=== PATIENT | female | born 1970 | race Caucasian/White ===

== ENCOUNTER → 2016-09-29 | Outpatient (CLI) | payer BC ==
[~2016-09-29] MED LIST: FLUC200T4 PO; NYSTCRE32 TOP; PHEN-775 PO
== END | disposition home or self-care (01) ==
LOC: C.PAPS 09:35
PROVIDERS: ATTEND Obstetrics & Gynecology
DX: Z01.419 Encounter for gynecological examination (general) (routine) without abnormal findings (principal)

== ENCOUNTER → 2016-12-22 | Outpatient (CLI) | payer BC ==
--- NOTE | 2016-12-22 13:14 | MAMMOGRAPHY REPORT ---
BILATERAL DIGITAL DIAGNOSTIC MAMMOGRAM TOMOSYNTHESIS WITH CAD AND TARGETED RIGHT ULTRASOUND: 12/22/2016 CLINICAL HISTORY: The patient reports a palpable right breast lump for approximately one month. TECHNIQUE: Breast tomosynthesis in addition to standard 2D mammography was performed. Current study was also evaluated with a Computer Aided Detection (CAD) system. Bilateral CC and MLO 2-D and tomosy nthesis images were obtained. COMPARISON: Comparison is made to exam dated: 09/23/2015 mammogram - [facility]. BREAST COMPOSITION: The tissue of both breasts is extremely dense, which lowers the sensitivity of m ammography. FINDINGS: A triangle marker crystal the site of the palpable lump in the right upper outer quadrant. There are no suspicious masses, calcifications, or areas of architectural distortion noted mammograph ically. There has been no significant interval change compared to prior exams. Scattered bilateral benign appearing calcifications are not significantly changed. Targeted ultrasound was performed of the area of the palpable lump pointed out by the patient, in the right breast at approximately 11:00, 6 cm from the nipple. At the site of the palpable lump there i s a round circumscribed hypoechoic solid mass which measures 7 x 8 x 8 mm. This is indeterminate and ultrasound-guided core needle biopsy is recommended for further evaluation. IMPRESSION: ACR BI-RADS CATEGORY 4: SUSPICIOUS, TARGETED ULTRASOUND ACR BI-RADS CATEGORY 4: SUSPICIO US Circumscribed solid 8 mm mass at the site of the palpable lump in the right breast at 11:00. The mas s is indeterminate and ultrasound guided core needle biopsy is recommended for further evaluation. T his may represent a fibroadenoma. A phone call was made to the physician's office to confirm faxed results were received. The patient has been verbally notified of the results. She tentatively scheduled the biopsy before [facility]. Approximately 10% of breast cancers are not detected with mammography. A negative mammographic report should not delay biopsy if a clinically suggestive mass is present. Pearl Magallon M.D. /:12/22/2016 09:54:49 Ratoprinter: Renay ARIAS(Juani)(Sky), [facility] letter sent: Abnormal 4/5 BI-RADS Code: ACR BI-RADS Category 4: Suspicious Ultrasound BI-RADS: ACR BI-RADS Category 4: Suspici ous
== END | disposition home or self-care (01) ==
LOC: C.MAMM 09:21
PROVIDERS: ATTEND Obstetrics & Gynecology
DX: N63 Unspecified lump in breast (principal)

== ENCOUNTER → 2016-12-24 | Outpatient (CLI) | payer BC ==
--- NOTE | 2016-12-24 13:30 | Discharge Instructions ---
Discharge Instructions Procedure Procedure Date: Dec 24, 2016. Reason for visit: Right Mass. Discharge Discharge Date: Dec 24, 2016. Discharge Diagnosis: status post breast biopsy Instructions Activity Recommendations: Additional Limitations (see below) Return to School/Work: no limitations Recommended Home Diet: No Limitations Provider Instructions: ACTIVITY RECOMMENDATIONS: * No lifting, pushing, pulling or exercising the affected side for three days. RETURN TO SCHOOL/WORK: * You may return to work/school after the procedure, but do not perform any strenuous activities for 24 to 48 hours. MEDICATIONS: * Tylenol (two 325 mg) every four to six hours if needed for mild pain (if not allergic to Tylenol). DIET: * Resume previous diet. SPECIAL CARE INSTRUCTIONS: * Keep biopsy site dry for 24 hours. May shower after 24 hours, but do not soak (bathe) incision. * May remove Tegaderm (plastic patch) tomorrow AFTER showering. * Leave the steri-strips on for one week. Allow the steri-strips to fall off by themselves. If not off after one week, you may remove them. You may place a Bandaid crosswise over the strips, if desired. * Apply ice 10 minutes on and 10 minutes off as needed. * Wear a bra at bedtime to sleep more comfortably for 2-3 days. * Your referring physician should have the results after approximately 5 to 7 business days. * Call for unusual bleeding, fever, drainage, etc or if you have any questions call during normal business hours or after hours call Dr Magallon, . FOLLOW UP VISIT: Follow-up with Referring Physician as scheduled. Allergies Coded Allergies: Fluconazole (Verified Allergy, Unknown, mouth ulcers,lip swelling, 03/22/15) Valerie Metz Recommendations: Call your doctor if: * Temperature above 101 degrees * Pain not relieved by pain medicine ordered * There is increased drainage or redness from any incision * You have any unanswered questions or concerns. Your Doctors Instructions noted above were prepared by provider Pearl Magallon. Patient Signature Section: Patient Instructions Signature Page Lana Cordova Patient (or Guardian) Signature/Date: I have read and understand the instructions given to me by my caregivers. Caregiver/RN/Doctor Signature/Date: The above-named patient and/or guardian has received patient instructions on this date. + Original Patient Signature Page (only) stays with chart. Please make copy for patient.
--- NOTE | 2016-12-24 13:55 | MAMMOGRAPHY REPORT ---
THIS REPORT HAS BEEN AMENDED. ULTRASOUND GUIDED BIOPSY RIGHT BREAST: 12/24/2016 CLINICAL HISTORY: Right 11:00 breast mass. PATIENT CONSENT: The procedure, risks and benefits were discussed with the patient and informed writt en consent was obtained. A timeout was performed immediately prior to the procedure. PROCEDURE DESCRIPTION: With ultrasound guidance, aseptic technique, and lidocaine as the local anesth etic (1% lidocaine to anesthetize the skin and 1% lidocaine with epinephrine to anesthetize the deepe r tissues), the mass of concern in the right 11:00 breast was sampled 3 times with a 14-gauge achieve biopsy needle. Immediately thereafter, with ultrasound guidance, aseptic technique, and lidocaine a s the local anesthetic, a metallic localizer clip was placed centrally in the mass. Direct pressure was applied to the site immediately post procedure and hemostasis was achieved. Postprocedure unilat eral mammograms were performed to confirm placement of the clip in the expected location of the breas t mass. The patient tolerated the procedure without complication. She was given wound care instruc tions. The specimens were sent to pathology for analysis. COMPARISON: Comparison is made to exams dated: 12/22/2016 ultrasound, 12/22/2016 mammogram, and 09/23/2015 mammogram - [facility]. IMPRESSION: ULTRASOUND GUIDED BIOPSY Ultrasound guided core needle biopsy of the right 11:00 breast mass, with clip placement. The patien priya will receive pathology results from her referring provider. Pearl Magallon M.D. ah/:12/24/2016 13:31:29 Service Dispatcher: Renee ARIAS(Juani)(Sky), [facility] AMENDMENT: 12/29/2016 Pearl Magallon M.D. The pathology of right breast ultrasound guided biopsy was reviewed on 12/29/2016. The pathology show s a fibroepithelial lesion with increased stromal cellularity, with differential including a cellular fibroadenoma versus phyllodes tumor. Excision was recommended by the pathologist. Therefore, recom mend surgical consultation and surgical excision.
--- NOTE | 2016-12-24 16:02 | MAMMOGRAPHY REPORT ---
UNILATERAL RIGHT DIGITAL DIAGNOSTIC MAMMOGRAM: 12/24/2016 CLINICAL HISTORY: Status post ultrasound-guided biopsy of the right breast. TECHNIQUE: Postprocedural right CC, XCCL, and ML views were obtained. COMPARISON: Comparison is made to exams dated: 12/22/2016 mammogram, 09/23/2015 mammogram, and 12/22/2016 ultrasound - [facility]. BREAST COMPOSITION: The tissue of the right breast is extremely dense, which lowers the sensitivity of mammography. FINDINGS: A new biopsy marker clip is seen in the right breast status post ultrasound guided biopsy of the right 11:00 breast mass. No significant postbiopsy hematoma is seen. IMPRESSION: POST PROCEDURE IMAGING FOR MARKER PLACEMENT New biopsy marker clip status post right breast biopsy. Pathology results are pending. Approximately 10% of breast cancers are not detected with mammography. A negative mammographic report should not delay biopsy if a clinically suggestive mass is present. Pearl Magallon M.D. ah/:12/24/2016 13:42:19 Music Sound Light Technician: Renee ARIAS(R)(M), [facility] BI-RADS Code: Post Procedure Imaging For Marker Placement
== END | disposition home or self-care (01) ==
LOC: C.MAMM 12:50
PROVIDERS: ATTEND Obstetrics & Gynecology
DX: N63 Unspecified lump in breast (principal); D48.61 Neoplasm of uncertain behavior of right breast

== ENCOUNTER → 2017-02-08 | Outpatient (CLI) | payer BC | END | disposition home or self-care (01) | LOC: C.LABPVFM 05:51 | PROVIDERS: ATTEND Family Medicine | DX: J02.9 Acute pharyngitis, unspecified (principal) ==

== ENCOUNTER 2019-12-17 11:11 | Observation (INO) ==
[2019-12-17 11:58] LABS: Basophils # (auto) 0.01 K/uL (0-0.2); Basophils % (auto) 0.1 %; Eosinophils # (auto) 0.01 K/uL (0-0.5); Eosinophils % (auto) 0.1 %; Hemoglobin 9.5 g/dL (12.0-16.0); Immature Granulocytes # (auto) 0.01 K/uL (0.00-0.02); Immature Granulocytes % (auto) 0.1 %; Lymphocytes # (auto) 1.03 K/uL (1.2-3.4); Lymphocytes % (auto) 13.7 %; Mean Corpuscular Hemoglobin 25.1 pg (25-34); Mean Corpuscular Hgb Conc 31.7 g/dL (32-36); Mean Corpuscular Volume 79.2 fL (80-100); Mean Platelet Volume 9.8 fL (7.4-10.4); Monocytes # (auto) 0.49 K/uL (0.11-0.59); Monocytes % (auto) 6.5 %; Neutrophils # (auto) 5.95 K/uL (1.4-6.5); Neutrophils % (auto) 79.5 %; Platelet Count 252 K/uL (130-400); RDW Coefficient of Variation 15.7 % (11.5-14.5); RDW Standard Deviation 45.5 fL (36.4-46.3); Red Blood Count 3.79 M/uL (4.2-5.4)
[2019-12-17] MEDS ORDERED: SODIUM CHLORIDE 0.9% 1000ML 1,000 ML IV ONE ×2 (12:07→14:35)
[2019-12-17 12:14] LABS: Albumin Level 3.7 gm/dl (3.4-5.0); BUN Creatinine Ratio 12.6 (10-20); Calcium 8.7 mg/dl (8.5-10.1); Creatinine Clr Calc Pharmacy 98.8 ml/min; Est GFR (African American) 117.6; Est GFR (Non-African American) 101.4; Potassium 3.4 mmol/L (3.5-5.1)
[2019-12-17 12:17] LABS: Albumin Globulin Ratio 0.9 (0.9-2); Bilirubin,Total 0.4 mg/dl (0.2-1); Globulin 4.1 gm/dl (2.5-4.0); Total Protein 7.8 gm/dl (6.4-8.2)
--- NOTE | 2019-12-17 12:20 | Emergency Department Note ---
Impression & Plan Hemoperitoneum, Abdominal pain, Anemia ED Provider Note NAME: LIS PEÑA AGE: 49 SEX: F : 1970 ARRIVES VIA: Walk-In INFORMANT: Patient ED PROVIDER(S): Patrick Abarca DO CHIEF COMPLAINT: Lower abdominal pain HPI: Patient is a 49-year-old female who presents the ER for pain in the lower belly. She describes as a crampy pain but unremitting. It is worse after eating and drinking. Started yesterday midday and progressively worsened. She admits to nausea. Last menstrual period started yesterday. Last bowel movement was yesterday. She notes that when she woke up this morning her belly was sore and she had some soreness in the right lower chest. She notes that change sides and then resolved. It was at 6 AM when this occurred. She notes the pain has improved significantly. She did try some ibuprofen yesterday. She still has the crampy persistent pain in her lower belly worse on the right without any other radiation. ROS: See above HPI for pertinent positives & negatives. A total of 10 systems reviewed and were otherwise negative. PAST MEDICAL HISTORY:See Below PAST SURGICAL HISTORY:See Below FAMILY HISTORY:See Below SOCIAL HISTORY:See Below HOME MEDICATIONS:See Below ALLERGIES:See Below VITALS:See Below PHYSICAL EXAMINATION: GENERAL: Sitting up in bed, alert, well appearing, well nourished, no distress, non-toxic EYE EXAM: normal conjunctiva. OROPHARYNX: no exudate, no erythema, lips, buccal mucosa, and tongue normal and mucous membranes are moist NECK: supple, no nuchal rigidity, no adenopathy, non-tender LUNGS: Clear to auscultation. Normal chest wall mechanics HEART: no murmurs, S1 normal and S2 normal ABDOMEN: abdomen soft, faint tenderness in the right lower quadrant, normo- active bowel sounds, no masses, no rebound or guarding. BACK: Back is symmetrical on inspection and there is no deformity, no midline tenderness, no CVA tenderness. SKIN: no rashes and no bruising UPPER EXTREMITIES: upper extremities are grossly normal. LOWER EXTREMITIES: No pitting edema. NEURO EXAM: Normal sensorium, cranial nerves II-XII grossly intact, normal speech, no gross weakness of arms, no gross weakness of legs. MEDICAL DECISION MAKING: Patient is a 49-year-old female that presents the ER for lower abdominal pain which started yesterday associated with vaginal bleeding. IV was established blood work was obtained. Labs show no significant leukocytosis but anemia at 9.5. BMP with a mild hyponatremia and hypokalemia. LFTs bilirubin and troponin was negative. Lipase was normal. UA was contaminated with multiple epithelial cells. was negative. CT abdomen pelvis shows large abdominal hematoma along with hemoperitoneum. Patient was given IV fluids. She was given IV Toradol prior to the result of the CT. Discussed with gynecology who evaluated the patient at bedside. They elected to admit her to trend out hemoglobins. She may be discharged later today if the hemoglobin vince stable. Patient was updated bedside and agreeable with the plan. Triage Nursing notes reviewed. Prior medical records reviewed Vital Signs: reviewed and remarkable for tachycardic Differential diagnosis: Differential diagnoses includes but is not limited to gastritis, peptic ulcer disease, GERD, gallbladder disease, pancreatitis, small bowel obstruction, acute coronary syndrome, pericarditis, ischemic bowel, irritable bowel disease, irritable bowel syndrome, appendicitis, diverticulitis, malignancy, hernia, urinary tract infection, torsion, /ectopic (if female), perforation, trauma, infectious. ER treatment provided: See below Diagnostics interpreted by me: ECG: Sinus rhythm rate 86 Normal axis No PVCs Normal QTC Cardiac Monitoring: An order was placed for continuous cardiac monitoring. The monitor shows a rate of 98 with sinus rhythm. Laboratory studies: As stated above and show below. Imaging studies: CT abdomen pelvis shows a large hemoperitoneum. Consultation(s): Dr. Glen Guajardo ED COURSE: Procedures: none Critical Care: None Past Med/Surg History Medical History Migraine Surgical History History of biopsy 04/08/16 - endometrial biopsy. Benign. History of lumpectomy of right breast 01/13/17 - local anesthesia. Benign - consistent with fibroadenoma History of right breast biopsy 12/24/16 - local anesthesia--inconclusive; 02/14/04 - Benign, consistent with fibroadenoma. 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 Beliefs That Will Affect Care: None marital status: Current Living Situation: Spouse and Family Current Living Situation Comment: Lives with and 1 teenage daughter current occupational status: employed Feels Safe at Home: Yes Smoking Status: Never smoker Second Hand Exposure: Yes (parents smoked when pt was really young) ; Hx Alcohol Use: Yes Alcohol type: beer Hx Substance Use: No Dental Care, Regularly: Yes Seatbelt Use: always Sunscreen Use: Yes Allergies Allergies Allergy/AdvReac Type Severity Reaction Status Date / Time fluconazole Allergy Intermediate mouth Verified 12/17/19 12:36 ulcers,lip swelling Home Meds Home Medications Medication Instructions Recorded Confirmed multivitamin 1 tab PO QAM 09/23/19 12/17/19 ibuprofen 400 - 600 mg PO Q6H PRN 12/17/19 12/17/19 naproxen sodium [Aleve] 440 mg PO Q8H PRN 12/17/19 12/17/19 Results & Data (ED) Vital Signs Vital Signs - 24 hr 12/17/19 11:23 12/17/19 11:40 12/17/19 12:16 Temperature 36.9 C Temperature Source Oral Pulse Rate 100 H 78 Pulse Rate [Right Finger] Respiratory Rate 16 19 Respiratory Depth Normal Blood Pressure 110/73 Blood Pressure [Right Arm] Blood Pressure Mean 85 Blood Pressure Mean [Right Arm] Pulse Oximetry 100 100 Oxygen Delivery Method Room Air Room Air Sepsis Recent Fever Within 48 Hours No Sepsis New/Unexplained Change in Mental Status No Sepsis Action Taken by Nursing No Action Required 12/17/19 12:20 12/17/19 12:30 12/17/19 12:40 Temperature Temperature Source Pulse Rate 74 77 74 Pulse Rate [Right Finger] Respiratory Rate 18 22 21 Respiratory Depth Blood Pressure Blood Pressure [Right Arm] Blood Pressure Mean Blood Pressure Mean [Right Arm] Pulse Oximetry Oxygen Delivery Method Sepsis Recent Fever Within 48 Hours Sepsis New/Unexplained Change in Mental Status Sepsis Action Taken by Nursing 12/17/19 12:50 12/17/19 13:04 12/17/19 13:10 Temperature Temperature Source Pulse Rate 71 79 75 Pulse Rate [Right Finger] Respiratory Rate 20 19 Respiratory Depth Blood Pressure Blood Pressure [Right Arm] Blood Pressure Mean Blood Pressure Mean [Right Arm] Pulse Oximetry Oxygen Delivery Method Sepsis Recent Fever Within 48 Hours Sepsis New/Unexplained Change in Mental Status Sepsis Action Taken by Nursing 12/17/19 13:13 12/17/19 15:15 Temperature Temperature Source Pulse Rate 74 Pulse Rate [Right Finger] 74 Respiratory Rate 14 20 Respiratory Depth Blood Pressure 113/64 Blood Pressure [Right Arm] 115/70 Blood Pressure Mean 71 Blood Pressure Mean [Right Arm] 85 Pulse Oximetry 100 Oxygen Delivery Method Room Air Sepsis Recent Fever Within 48 Hours Sepsis New/Unexplained Change in Mental Status Sepsis Action Taken by Nursing Laboratory Data Result diagrams: 12/17/19 11:40 12/17/19 11:40 Lab Results 12/17/19 12/17/19 12/17/19 Range/Units 11:40 11:40 11:40 WBC 7.50 (4.8-10.8) K/uL RBC 3.79 L (4.2-5.4) M/uL Hgb 9.5 L (12.0-16.0) g/dL Hct 30.0 L (37-47) % MCV 79.2 L (80-100) fL MCH 25.1 (25-34) pg MCHC 31.7 L (32-36) g/dL RDW Std Deviation 45.5 (36.4-46.3) fL RDW Coeff of Jermaine 15.7 H (11.5-14.5) % Plt Count 252 (130-400) K/uL MPV 9.8 (7.4-10.4) fL Immature Gran % (Auto) 0.1 % Neut % (Auto) 79.5 % Lymph % (Auto) 13.7 % [place] % (Auto) 6.5 % Eos % (Auto) 0.1 % Baso % (Auto) 0.1 % Immature Gran # (Auto) 0.01 (0.00-0.02) K/uL Neut # (Auto) 5.95 (1.4-6.5) K/uL Lymph # (Auto) 1.03 L (1.2-3.4) K/uL [place] # (Auto) 0.49 (0.11-0.59) K/uL Eos # (Auto) 0.01 (0-0.5) K/uL Baso # (Auto) 0.01 (0-0.2) K/uL Sodium 135 L (136-145) mmol/L Potassium 3.4 L (3.5-5.1) mmol/L Chloride 104 (98-107) mmol/L Carbon Dioxide 25 (21-32) mmol/L Anion Gap 6.0 (3-11) BUN 9 (7-18) mg/dl Creatinine 0.71 (0.6-1.2) mg/dl Est Cr Clr Drug Dosing 98.8 ml/min Est GFR ( Amer) 117.6 Est GFR (Non-Af Amer) 101.4 BUN/Creatinine Ratio 12.6 (10-20) Glucose 118 H (70-99) mg/dl Calcium 8.7 (8.5-10.1) mg/dl Total Bilirubin 0.4 (0.2-1) mg/dl AST 13 L (15-37) U/L ALT 17 (12-78) U/L Alkaline Phosphatase 65 (45-117) U/L Troponin I < 0.015 (0-0.045) ng/ml Total Protein 7.8 (6.4-8.2) gm/dl Albumin 3.7 (3.4-5.0) gm/dl Globulin 4.1 H (2.5-4.0) gm/dl Albumin/Globulin Ratio 0.9 (0.9-2) Lipase 121 (73-393) U/L Urine Color Urine Appearance (Clear) Urine pH (4.5-7.5) Ur Specific [place] (1.000-1.030) Urine Protein (Negative) Urine Glucose (UA) (Negative) Urine Ketones (Negative) Urine Blood (Negative) Urine Nitrite (Negative) Urine Bilirubin (Negative) Urine Urobilinogen (Negative) Ur Leukocyte Esterase (Negative) Urine WBC (Auto) (0-5) /hpf Urine RBC (Auto) (0-4) /hpf U Hyaline Cast (Auto) (0-5) /lpf U Epithel Cells (Auto) (0-5) /lpf Urine Bacteria (Auto) (Negative) POC Ur Test (NEG) 12/17/19 12/17/19 Range/Units 12:15 12:15 WBC (4.8-10.8) K/uL RBC (4.2-5.4) M/uL Hgb (12.0-16.0) g/dL Hct (37-47) % MCV (80-100) fL MCH (25-34) pg MCHC (32-36) g/dL RDW Std Deviation (36.4-46.3) fL RDW Coeff of Jermaine (11.5-14.5) % Plt Count (130-400) K/uL MPV (7.4-10.4) fL Immature Gran % (Auto) % Neut % (Auto) % Lymph % (Auto) % [place] % (Auto) % Eos % (Auto) % Baso % (Auto) % Immature Gran # (Auto) (0.00-0.02) K/uL Neut # (Auto) (1.4-6.5) K/uL Lymph # (Auto) (1.2-3.4) K/uL [place] # (Auto) (0.11-0.59) K/uL Eos # (Auto) (0-0.5) K/uL Baso # (Auto) (0-0.2) K/uL Sodium (136-145) mmol/L Potassium (3.5-5.1) mmol/L Chloride (98-107) mmol/L Carbon Dioxide (21-32) mmol/L Anion Gap (3-11) BUN (7-18) mg/dl Creatinine (0.6-1.2) mg/dl Est Cr Clr Drug Dosing ml/min Est GFR ( Amer) Est GFR (Non-Af Amer) BUN/Creatinine Ratio (10-20) Glucose (70-99) mg/dl Calcium (8.5-10.1) mg/dl Total Bilirubin (0.2-1) mg/dl AST (15-37) U/L ALT (12-78) U/L Alkaline Phosphatase (45-117) U/L Troponin I (0-0.045) ng/ml Total Protein (6.4-8.2) gm/dl Albumin (3.4-5.0) gm/dl Globulin (2.5-4.0) gm/dl Albumin/Globulin Ratio (0.9-2) Lipase (73-393) U/L Urine Color Yellow Urine Appearance Clear (Clear) Urine pH 6.5 (4.5-7.5) Ur Specific [place] 1.021 (1.000-1.030) Urine Protein Negative (Negative) Urine Glucose (UA) Negative (Negative) Urine Ketones Negative (Negative) Urine Blood 3+ H (Negative) Urine Nitrite Negative (Negative) Urine Bilirubin Negative (Negative) Urine Urobilinogen Negative (Negative) Ur Leukocyte Esterase Negative (Negative) Urine WBC (Auto) 1-5 (0-5) /hpf Urine RBC (Auto) >30 H (0-4) /hpf U Hyaline Cast (Auto) 5-10 H (0-5) /lpf U Epithel Cells (Auto) >30 H (0-5) /lpf Urine Bacteria (Auto) Negative (Negative) POC Ur Test NEG (NEG) Administered Medications Ioversol (Optiray 320 100ml) 93 ml IV ONCE PRN PRN Reason: Interaction Checking Stop: 12/21/19 12:55 Last Admin: 12/17/19 12:56 Dose: 93 ml Documented by: [id number] Discontinued Medications Sodium Chloride (Nss 1000ml) 1,000 mls @ 999 mls/hr IV .Q1H1M ONE Stop: 12/17/19 13:07 Last Infusion: 12/17/19 13:26 Dose: 0 mls/hr Documented by: [id number] Admin: 12/17/19 12:11 Dose: 999 mls/hr Documented by: [id number] Sodium Chloride (Nss 1000ml) 1,000 mls @ 999 mls/hr IV .Q1H1M ONE Stop: 12/17/19 15:35 Last Admin: 12/17/19 15:13 Dose: 999 mls/hr Documented by: [id number] Ketorolac Tromethamine (Toradol) 15 mg IV NOW ONE Stop: 12/17/19 13:08 Last Admin: 12/17/19 13:13 Dose: 15 mg Documented by: [id number] Discharge Plan Visit Data Chief Complaint: Abdominal Pain Stated Complaint: ABDOMINAL PAIN,NAUSEA ED Provider: Patrick Abarca Discharge Problem: Hemoperitoneum, Abdominal pain, Anemia Forms Stand Alone Forms: My [facility] [employer] Prescriptions Prescriptions: No Action multivitamin [Multiple Vitamins] Tablet 1 tab PO QAM RF: 0 ibuprofen 200 mg Tablet 400 - 600 mg PO Q6H PRN (Reason: Pain) RF: 0 naproxen sodium [Aleve] 220 mg Capsule 440 mg PO Q8H PRN (Reason: Pain) RF: 0 Discharge Problem: Abdominal pain Qualifiers: Abdominal location: unspecified location Qualified Code(s): R10.9 - Unspecified abdominal pain Anemia Qualifiers: Anemia type: unspecified type Qualified Code(s): D64.9 - Anemia, unspecified
[2019-12-17 12:26] LABS: Appearance Urine Clear (Clear); Bacteria Urine Automated Negative (Negative); Bilirubin Urine Negative (Negative); Blood Urine 3+ (Negative); Color Urine Yellow; Epithelial Cell Urine Auto >30 /lpf (0-5); Glucose Urine UA Negative (Negative); Ketones Urine Negative (Negative); Leukocyte Esterase Urine Negative (Negative); Nitrite Urine Negative (Negative); Protein Urine Negative (Negative); RBC Urine Automated >30 /hpf (0-4); Specific Gravity Urine 1.021 (1.000-1.030); Urobilinogen Urine Negative (Negative); pH Urine 6.5 (4.5-7.5)
[2019-12-17] MEDS ORDERED: IOVERSOL 100ml IV PRN (12:56)
[2019-12-17] MEDS ORDERED: KETOROLAC TROMETHAMINE 15 MG/ML VIAL IV ONE (13:07)
--- NOTE | 2019-12-17 13:16 | CT Scan Report ---
CT SCAN OF THE ABDOMEN AND PELVIS WITH IV CONTRAST CLINICAL HISTORY: Right-sided abdominal pain. COMPARISON STUDY: No priors. TECHNIQUE: Following the IV administration of 93 cc of Optiray 320, CT scan of the abdomen and pelvi s is performed from the lung bases to the proximal femora. Images are reviewed in the axial, sagittal , and coronal planes. IV contrast was administered without complication. A dose lowering technique wa s utilized adhering to the principles of ALARA. CT DOSE: 324.44 mGy.cm FINDINGS: Lung bases: The heart is normal in size and without pericardial effusion. There are trace pleural eff usions with dependent atelectasis. Liver: The contrast-enhanced liver is normal in size, contour, and attenuation. There is no intrahepa tic biliary ductal dilatation. The hepatic veins and portal veins are patent. A 1.6 cm low-attenuatio n lesion in the right lobe on image #51 and 1.7 cm hypodense lesion in the inferior right lobe on christian ge #148 are pathologically indeterminant. Scattered hepatic cysts measure up to 1.6 cm. Additional grullon bcentimeter hepatic hypodensities also likely represent cysts but are too small for definitive charac terization. Gallbladder: Unremarkable. Spleen: Normal in size and attenuation. Pancreas: Unremarkable. Adrenal glands: Unremarkable. Kidneys: The contrast enhanced kidneys are normal in size and without hydronephrosis. The kidneys enh ance symmetrically. Abdominal vasculature: The abdominal aorta is normal in course and caliber. Bowel: No bowel obstruction is identified. There are scattered colonic diverticula without CT evidenc e of acute diverticulitis. The appendix is well-visualized and normal. Peritoneum: There is a small volume of complex free fluid in the abdomen and pelvis. This likely repr esents hemoperitoneum. No intraperitoneal free air is seen. There is a fat-containing umbilical herni a. Lymphadenopathy: None. Pelvic viscera: The bladder is distended but otherwise normal in appearance. Question uterine fibroid s. A tampon is in place. An approximately 8 x 6 cm hematoma is suggested in the right adnexa on image #320. This is not well delineated due to surrounding hemoperitoneum. No active extravasation is iden tified. Follicles are noted in the left ovary. Skeletal structures: No lytic or blastic lesions are seen. IMPRESSION: 1. There is a small volume of complex free fluid in the abdomen and pelvis typical in appearance for hemoperitoneum. 2. An approximately 8 x 6 cm hematoma is suggested in the right adnexa. 3. Although the right ovary is not well evaluated due to surrounding hemoperitoneum, these findings s uggest the sequelae of a ruptured hemorrhagic ovarian cyst. If there is a positive test a r uptured ectopic would be impossible to exclude. Clinical correlation will be essential. Pel jose ultrasound could be considered for further assessment. 4. There are 2 indeterminate low-attenuation liver lesions which measure up to 1.7 cm. These may repr esent hemangiomas but are incompletely assessed. These are of low suspicion of there is no cancer his tory. If definitive assessment is desired a nonemergent liver protocol MRI would be appropriate. ACT 112: Negative or not required by law. Electronically signed by: Vaughn Munguia M.D. 12/17/2019 1:15 PM
[2019-12-17] MEDS ORDERED: LACTATED RINGER'S 1,000 ML IV PRN (13:38)
[2019-12-17] MEDS ORDERED: ONDANSETRON INJ 2 MG/ML 2 ML VIAL IV PRN ×2 (13:38→18:46)
--- NOTE | 2019-12-17 13:47 | History & Physical Report ---
Date of Service December 17, 2019 Assessment & Plan (1) Ovarian cyst: Reviewed the CT scan and it reveals an 8 x 5 cm hemorrhagic right ovarian cyst. Her hemoglobin is 9.5 I do not have a baseline prior to this. There is minimal hemoperitoneum The patient is symptomatically much better. I have deferred pelvic exam at this time as she has had a recent pelvic and I have a CT results. I do not have a baseline hemoglobin prior to this so I will repeat the hemoglobin at 5 PM today if it is dropping significantly we discussed the need for surgery will make the patient n.p.o. as well now we discussed if that hemoglobin was stable and her symptoms were stable this could be managed as an outpatient and trying to avoid surgery however her symptoms worsened or she became unstable hemodynamically or if the hemoglobin drops significantly that we would recommend surgery patient is agreeable to this History of Present Illness Primary Care Provider: Hannah Mcgregor MD 49-year-old woman presents with right lower quadrant pain initially began yesterday a.m. and then worsened today she presented to the ER it did start to spontaneously improve she described to this significant pain in her right lower quadrant associated with nausea and vomiting. Patient is known to our practice has had 2 children with her group she is otherwise healthy Patient has had a CT scan and pelvic exam in the ER Allergies Allergy/AdvReac Type Severity Reaction Status Date / Time fluconazole Allergy Intermediate mouth Verified 12/17/19 12:36 ulcers,lip swelling Home Medications Home Medications Medication Instructions Recorded Confirmed Type multivitamin 1 tab PO QAM 09/23/19 12/17/19 History ibuprofen 400 - 600 mg PO Q6H PRN 12/17/19 12/17/19 History naproxen sodium [Aleve] 440 mg PO Q8H PRN 12/17/19 12/17/19 History Patient History Medical History Migraine Surgical History History of biopsy 04/08/16 - endometrial biopsy. Benign. History of lumpectomy of right breast 01/13/17 - local anesthesia. Benign - consistent with fibroadenoma History of right breast biopsy 12/24/16 - local anesthesia--inconclusive; 02/14/04 - Benign, consistent with fibroadenoma. History of tonsillectomy and adenoidectomy History of wisdom tooth extraction S/P thyroid biopsy Family History Sister Family hx of colon cancer Son Family history of reaction to anesthesia difficulty waking Grandfather (Maternal) Cardiac disorder Grandfather (Paternal) Lung cancer Grandmother (Paternal) Breast cancer Grandmother (Maternal) Malignant neoplasm of kidney Social History Preferred Language: [place] Communication Ability: Effective Vice President Of Compliance Required: No Beliefs That Will Affect Care: None marital status: Current Living Situation: Spouse and Family Current Living Situation Comment: Lives with and 1 teenage daughter current occupational status: employed Feels Safe at Home: Yes Smoking Status: Never smoker Second Hand Exposure: Yes (parents smoked when pt was really young) ; Hx Alcohol Use: Yes Alcohol type: beer Hx Substance Use: No Dental Care, Regularly: Yes Seatbelt Use: always Sunscreen Use: Yes Review of Systems All systems reviewed & are unremarkable except as noted in HPI & below Physical Exam Constitutional: WD/WN, vitals as above Respiratory: normal respiratory effort, lungs clear to auscultation Cardiovascular: RRR, no murmur, no edema Gastrointestinal (Abdomen): normal bowel sounds, soft, nontender, no he patosplenomegaly Results & Data Vital Signs (Past 12 Hours) Vital Signs Temp Pulse Resp BP Pulse Ox 12/17/19 13:13 74 14 113/64 12/17/19 13:10 75 19 12/17/19 13:04 79 12/17/19 12:50 71 20 12/17/19 12:40 74 21 12/17/19 12:30 77 22 12/17/19 12:20 74 18 12/17/19 12:16 78 19 12/17/19 11:40 100 12/17/19 11:23 98.4 F 100 H 16 110/73 100 Coding Level of Care Code 10919 OBS Care - Level 2 Diagnoses Ovarian cyst N83.209
[2019-12-17 17:13] LABS: Basophils # (auto) 0.01 K/uL (0-0.2); Basophils % (auto) 0.2 %; Eosinophils # (auto) 0.01 K/uL (0-0.5); Eosinophils % (auto) 0.2 %; Hematocrit (blood only) 25.9 % (37-47); Hemoglobin 8.3 g/dL (12.0-16.0); Immature Granulocytes # (auto) 0.01 K/uL (0.00-0.02); Immature Granulocytes % (auto) 0.2 %; Lymphocytes # (auto) 1.41 K/uL (1.2-3.4); Lymphocytes % (auto) 23.2 %; Mean Corpuscular Hemoglobin 25.5 pg (25-34); Mean Corpuscular Volume 79.7 fL (80-100); Mean Platelet Volume 10.3 fL (7.4-10.4); Monocytes # (auto) 0.39 K/uL (0.11-0.59); Monocytes % (auto) 6.4 %; Neutrophils # (auto) 4.24 K/uL (1.4-6.5); Neutrophils % (auto) 69.8 %; Platelet Count 228 K/uL (130-400); RDW Coefficient of Variation 15.8 % (11.5-14.5); RDW Standard Deviation 46.4 fL (36.4-46.3); Red Blood Count 3.25 M/uL (4.2-5.4); White Blood Count 6.07 K/uL (4.8-10.8)
--- NOTE | 2019-12-17 18:01 | Gynecologic Progress Note ---
Date of Service December 17, 2019 Assessment & Plan (1) Ovarian cyst: Patient's hemoglobin has dropped a little bit from 9.5-8.3 although she has had 2 L of IV fluids since then and some of this is probably hemodilutional. The patient does feel fatigued I offered the option of observation overnight. She agrees with this as that way we can monitor how she feels and recheck labs in the morning I discussed the possibility of surgical assessment for this but in general with hemorrhagic cysts most of these will resolve with time she seemed to understand this but if her condition worsened we would consider surgical approach plan to observe overnight we will hold her n.p.o. for the moment IV fluids (2) Hemoperitoneum: Results & Data ([facility]) Vital Signs (Past 12 Hours) Vital Signs Temp Pulse Pulse Resp BP BP Pulse Ox 12/17/19 15:15 74 20 115/70 100 12/17/19 13:13 74 14 113/64 12/17/19 13:10 75 19 12/17/19 13:04 79 12/17/19 12:50 71 20 12/17/19 12:40 74 21 12/17/19 12:30 77 22 12/17/19 12:20 74 18 12/17/19 12:16 78 19 12/17/19 11:40 100 12/17/19 11:23 98.4 F 100 H 16 110/73 100 PG Care Time/CCT Total # of Minutes Spent Total Time Spent with Patient: Total time spent is greater than 50% in coordination of care (as documented) at patient's floor/unit and/or counseling patient: Coding Level of Care Code None Diagnoses Ovarian cyst N83.209 Hemoperitoneum K66.1
[2019-12-17] MEDS: LACTATED RINGER'S 1,000 ML IV SCH (19:32)
[2019-12-17] MEDS: MoRPHine SULFATE 2 MG/ML CARP IV PRN (19:33)
[2019-12-18] MEDS: LACTATED RINGER'S 1,000 ML IV SCH (02:35)
[2019-12-18] MEDS: MoRPHine SULFATE 2 MG/ML CARP IV PRN (03:59)
--- NOTE | 2019-12-18 05:57 | Gynecologic Progress Note ---
Date of Service December 18, 2019 Assessment & Plan (1) Ovarian cyst: patient did well last night, pain currently manageable. Will await Hb this am Admission and Anticipated Discharge Date Admission Date: December 17, 2019 Results & Data ([facility]) Vital Signs (Past 12 Hours) Vital Signs Temp Pulse Pulse Resp BP Pulse Ox 12/17/19 23:16 98.6 F 80 18 111/69 12/17/19 19:20 98.2 F 81 18 132/81 97 12/17/19 18:45 99.3 F 74 16 135/82 99 12/17/19 18:00 79 15 100 PG Care Time/CCT Total # of Minutes Spent Total Time Spent with Patient: Total time spent is greater than 50% in coordination of care (as documented) at patient's floor/unit and/or counseling patient: Coding Level of Care Code 09951 Subseq Hosp Care Lvl 2 Diagnoses Ovarian cyst N83.209
[2019-12-18 07:45] LABS: Basophils # (auto) 0.02 K/uL (0-0.2); Basophils % (auto) 0.6 %; Eosinophils # (auto) 0.07 K/uL (0-0.5); Eosinophils % (auto) 2.1 %; Hematocrit (blood only) 25.3 % (37-47); Hemoglobin 8.1 g/dL (12.0-16.0); Immature Granulocytes # (auto) 0.01 K/uL (0.00-0.02); Immature Granulocytes % (auto) 0.3 %; Lymphocytes # (auto) 1.42 K/uL (1.2-3.4); Lymphocytes % (auto) 42.1 %; Mean Corpuscular Hemoglobin 25.5 pg (25-34); Mean Corpuscular Volume 79.6 fL (80-100); Mean Platelet Volume 10.7 fL (7.4-10.4); Monocytes # (auto) 0.26 K/uL (0.11-0.59); Monocytes % (auto) 7.7 %; Neutrophils # (auto) 1.59 K/uL (1.4-6.5); Neutrophils % (auto) 47.2 %; Platelet Count 228 K/uL (130-400); RDW Coefficient of Variation 15.7 % (11.5-14.5); RDW Standard Deviation 46.2 fL (36.4-46.3); Red Blood Count 3.18 M/uL (4.2-5.4); White Blood Count 3.37 K/uL (4.8-10.8)
--- NOTE | 2019-12-18 07:49 | Gynecologic Progress Note ---
Date of Service December 18, 2019 Assessment & Plan (1) Anemia: (2) Ovarian cyst: Hb 8.1 stable. Feels well. Home Fe discussed F/U 1 week Admission and Anticipated Discharge Date Admission Date: December 17, 2019 Results & Data ([facility]) Vital Signs (Past 12 Hours) Vital Signs Temp Pulse Resp BP 12/17/19 23:16 98.6 F 80 18 111/69 PG Care Time/CCT Total # of Minutes Spent Total Time Spent with Patient: Total time spent is greater than 50% in coordination of care (as documented) at patient's floor/unit and/or counseling patient: Coding Level of Care Code None Diagnoses Anemia D64.9 Anemia type: unspecified type Ovarian cyst N83.209 (1) Anemia Anemia type: unspecified type Qualified Code(s): D64.9 - Anemia, unspecified
--- NOTE | 2019-12-18 11:44 | Electrocardiogram Report ---
Test Reason : Blood Pressure : / mmHG Vent. Rate : 086 BPM Atrial Rate : 086 BPM P-R Int : 134 ms QRS Dur : 076 ms QT Int : 400 ms P-R-T Axes : 062 028 018 degrees QTc Int : 478 ms Normal sinus rhythm Nonspecific ST abnormality Borderline ECG No previous ECGs available Confirmed by Rod Frazier ([id number]) on 12/18/2019 11:43:48 AM Referred By: REFERRED SELF Confirmed By:Rod Frazier
--- NOTE | 2019-12-21 08:22 | Discharge Summary ---
Date of Service December 21, 2019 Admission HPI Per Admitting Provider 49-year-old woman presents with right lower quadrant pain initially began yesterday a.m. and then worsened today she presented to the ER it did start to spontaneously improve she described to this significant pain in her right lower quadrant associated with nausea and vomiting. Patient is known to our practice has had 2 children with her group she is otherwise healthy Patient has had a CT scan and pelvic exam in the ER Admission Exam (Per Admitting) Constitutional WD/WN, vitals as above Respiratory normal respiratory effort, lungs clear to auscultation Cardiovascular RRR, no murmur, no edema Gastrointestinal (Abdomen) normal bowel sounds, soft, nontender, no hepatosplenomegaly Discharge Data Consultations 12/17/19 13:39 ED Decision to Admit Stat Hospital Course (1) Anemia: (2) Ovarian cyst: Hb 8.1 stable. Feels well. Had been monitored overnight and feels better Home Fe discussed F/U 1 week Coding Level of Care Code None Diagnoses Anemia D64.9 Anemia type: unspecified type Ovarian cyst N83.209
== END 2019-12-18 09:37 | disposition home or self-care (01) ==
LOC: 4S2 11:11 → ED 11:11 → 4S2 18:24